=== PATIENT | male | born 1935 | race Caucasian/White ===

== ENCOUNTER → 2023-08-28 08:09 | Outpatient (REF) | payer BC, SELFPAY | LOC: RAD 08:09 | PROVIDERS: ATTENDING PHYSICIAN Internal Medicine Cardiovascular Disease; FAMILY PHYSICIAN Internal Medicine | DX: R22.1 Localized swelling, mass and lump, neck (principal) | CPT/HCPCS: 93880 ==

== ENCOUNTER → 2023-10-22 11:31 | Outpatient (REF) | payer BC, SELFPAY ==
[2023-10-22 15:32] LABS: ALT (SGPT) 21 U/L (0-50); AST (SGOT) 29 U/L (17-59); Albumin 4.1 g/dl (3.5-5.0); Alkaline Phosphatase 97 U/L (38-126); Blood Urea Nitrogen 18 mg/dl (9-20); Calcium 9.2 mg/dl (8.4-10.2); Carbon Dioxide 28 mmol/L (22-30); Chloride 105 mmol/L (98-107); Glucose 115 mg/dl (70-99); Potassium 4.1 mmol/L (3.5-5.1); Sodium 139 mmol/L (135-145); Total Protein 6.9 g/dl (6.3-8.2); eGFR > 60.00
[2023-10-22 16:40] LABS: Folate 7.4 ng/ml (2.76-20); Vitamin B12 297 pg/ml (239-931)
[2023-10-25 08:38] LABS: 24 Hour Urine Total Volume Random mL; Urine Collection Length Random hr; Urine Free Kappa Light Chains 19.83 mg/L (0.00-32.90)
== END ==
LOC: HWLAB 11:31
PROVIDERS: ATTENDING PHYSICIAN Internal Medicine Cardiovascular Disease; FAMILY PHYSICIAN Internal Medicine
DX: R79.89 Other specified abnormal findings of blood chemistry (principal); D51.9 Vitamin B12 deficiency anemia, unspecified; D52.9 Folate deficiency anemia, unspecified; R77.9 Abnormality of plasma protein, unspecified; R80.9 Proteinuria, unspecified
CPT/HCPCS: 36415; 80053; 82607; 82746; 83521; 84155; 84156; 84165; 86335

== ENCOUNTER → 2024-09-01 11:46 | Outpatient (REF) | payer BC, SELFPAY ==
[2024-09-01 17:28] LABS: Folate > 20.0 ng/ml (2.76-20); Vitamin B12 876 pg/ml (239-931)
== END ==
LOC: HWLAB 11:46
PROVIDERS: ATTENDING PHYSICIAN Internal Medicine Cardiovascular Disease; FAMILY PHYSICIAN Internal Medicine
DX: D53.1 Other megaloblastic anemias, not elsewhere classified (principal)
CPT/HCPCS: 36415; 82607; 82746

== ENCOUNTER → 2024-11-10 08:30 | Outpatient (REF) | payer BC, SELFPAY ==
[2024-11-10 09:26] LABS: % Basophils 0.2 % (0-2); % Eosinophils 0.8 % (0-6); % Immature Granulocytes 0.3 % (0-0.5); % Lymphocytes 31.1 % (20.5-51.1); % Monocytes 5.7 % (1.7-9.3); % Neutrophils 61.9 % (42.2-75.2); Absolute Eosinophils 0.1 10^3/uL (0-0.7); Absolute Monocytes 0.4 10^3/uL (0.1-0.6); Hematocrit 43.2 % (39.0-52.0); Hemoglobin 14.8 g/dL (13.0-18.0); Mean Corp Hgb Conc. 34.3 g/dL (33.0-37.0); Mean Corpuscular Hgb 35.7 pg (27.0-31.0); Mean Corpuscular Volume 104.3 fL (80.0-94.0); Mean Platelet Volume 8.7 fL (7.4-10.4); Nucleated Red Blood Cells % 0 % (-); Platelet Count 146 10^3/uL (130-400); Red Blood Cell Count 4.14 10^6/uL (4.70-6.10); Red Cell Dist. Width 13.6 % (11.5-14.5); White Blood Cell Count 6.4 10^3/uL (4.8-10.8)
[2024-11-10 11:08] LABS: TSH Reflex To Free T4 3.15 uIU/ml (0.47-4.68)
[2024-11-10 11:23] LABS: ALT (SGPT) 23 U/L (0-50); AST (SGOT) 31 U/L (17-59); Albumin 4.4 g/dl (3.5-5.0); Alkaline Phosphatase 92 U/L (38-126); Blood Urea Nitrogen 13 mg/dl (9-20); Calcium 9.4 mg/dl (8.4-10.2); Carbon Dioxide 26 mmol/L (22-30); Chloride 111 mmol/L (98-107); Glucose 98 mg/dl (70-99); HDL Cholesterol 51 mg/dl; LDL Cholesterol, Calculated 59 mg/dl; Potassium 3.9 mmol/L (3.5-5.1); Sodium 142 mmol/L (135-145); Total Bilirubin 1.4 mg/dl (0.2-1.3); Total Cholesterol 132 mg/dl (50-199); Total Protein 7.3 g/dl (6.3-8.2); Triglyceride 112 mg/dl (10-149); Very Low Density Lipoprotein 22 mg/dl (0-30); eGFR > 60.00
== END ==
LOC: HWLAB 08:30
PROVIDERS: ATTENDING PHYSICIAN Internal Medicine
DX: I13.0 Hypertensive heart and chronic kidney disease with heart failure and stage 1 through stage 4 chronic kidney disease, or unspecified chronic kidney disease (principal); I50.32 Chronic diastolic (congestive) heart failure; N18.2 Chronic kidney disease, stage 2 (mild); I25.118 Atherosclerotic heart disease of native coronary artery with other forms of angina pectoris; E78.00 Pure hypercholesterolemia, unspecified
CPT/HCPCS: 36415; 80053; 80061; 84443; 85025